=== PATIENT | male | born 1980 | race Caucasian/White ===

== ENCOUNTER 2020-08-06 18:58 | Emergency (ER) | payer MEDICAID ==
[~2020-08-06] VITALS: Ht 188 cm; Wt 90.0 kg
[~2020-08-06 18:58] MED LIST: NOCURR
[2020-08-06] MEDS ORDERED: PERTUSS(ACELL),DIPH,TET VAC/PF 0.5 ML SYRINGE IM ONE (20:00)
[2020-08-06] MEDS ORDERED: CefTRIAXone SODIUM 1 GM/VIAL IM ONE (20:00)
[2020-08-06] MEDS ORDERED: LIDOCAINE/PF 1% 2 ML VIAL IM ONE (20:00)
[2020-08-06] MEDS: ACETAMINOPHEN 325 MG TABLET PO ONE ×2 (20:07→20:12)
[2020-08-06 20:14] VITALS: BP 132/78
== END 2020-08-06 20:20 | disposition home or self-care (01) ==
LOC: EMS 19:02
DX: S91.332A Puncture wound without foreign body, left foot, initial encounter (principal); L03.116 Cellulitis of left lower limb; F17.210 Nicotine dependence, cigarettes, uncomplicated; F12.90 Cannabis use, unspecified, uncomplicated; F19.90 Other psychoactive substance use, unspecified, uncomplicated; W54.0XXA Bitten by dog, initial encounter; Y93.89 Activity, other specified; Y92.89 Other specified places as the place of occurrence of the external cause; Y99.8 Other external cause status
CPT/HCPCS: 90471; 90715; 96372; 99284; J0696; J3490